=== PATIENT | male | born 1965 | race African-American/Black ===

== ENCOUNTER 2021-12-04 13:13 | Emergency (ER) | payer OTHER, SELFPAY ==
[2021-12-04 13:27] VITALS: BP 123/81; PULSE 68; RESP 16; TEMP 37.2; O2SAT 98
--- NOTE | 2021-12-04 13:36 | ED.SKABFB ---
HPI - Skin/Abscess/Foreign Bdy General Chief complaint: Skin/Abscess/Foreign Body Stated complaint: POSSIBLE INFECTION Source: patient Mode of arrival: ambulatory Limitations: no limitations History of Present Illness HPI narrative: this is a 55-year-old gentleman that presents with a an abscess located in the right groin area nonfluctuant firm with currently no drainage there is a central punctate area, the patient is up-to-date with his tetanus currently there is no fever chills the area is tender warm with currently no drainage. complaint: abscess/boil Onset (ago): day(s) Tetanus up to date: yes Location: genitals ( right groin area) Severity: mild Severity scale (1-10): 3 Quality: aching Pain Consistency: constant Related Data Home Medications Medication Instructions Recorded Confirmed furosemide [Lasix] 40 mg PO DAILY 12/04/21 12/04/21 Allergies Allergy/AdvReac Type Severity Reaction Status Date / Time No Known Allergies Allergy Verified 12/04/21 13:29 Review of Systems Review of Systems: All systems reviewed & are unremarkable except as noted in HPI and below PMFSH Past Medical History Medical History Patient denies medical problems Exam Const: General: no acute distress and alert Orientation/consciousness: patient oriented x3 HENMT: Head: normal to inspection Eyes: Conjunctivae: conjunctivae normal Pupils: Equal, round and reactive pupils present Neck: Neck: normal visual inspection and no meningeal signs Chest: Chest palpation & inspection: normal inspection of the chest Resp: Effort & Inspection: normal respiratory effort Auscultation: clear to auscultation bilaterally Cardio: Rate: regular rate Rhythm: regular rhythm GI: Auscultation: normal bowel sounds Skin: Other: nonfluctuant abscess located the right groin area about 3x3cm with currently no drainage warm and tender to touch Neuro: General: patient oriented x3 Extrem: General: normal to inspection Course Course Emergency Course: the area the right groin is nonfluctuant abscess is warm and tender with no drainage, will give the patient a g of ceftriaxone IM and the patient is up-to-date with his tetanus shot. Vital Signs Vital signs: Vital Signs Temperature 37.2 C 12/04/21 13:27 Pulse Rate 68 12/04/21 13:27 Respiratory Rate 16 12/04/21 13:27 Blood Pressure 123/81 12/04/21 13:27 Pulse Oximetry 98 12/04/21 13:27 Temperature 37.2 C 12/04/21 13:27 Pulse Rate 68 12/04/21 13:27 Respiratory Rate 16 12/04/21 13:27 Blood Pressure 123/81 12/04/21 13:27 Pulse Oximetry 98 12/04/21 13:27 Critical Care Time Critical Care Time Critical Care Time: No Discharge Plan Discharge Clinical Impression: Abscess of skin or subcutaneous tissue Qualifiers: Site of cutaneous abscess: other site Qualified Code(s): L02.818 - Cutaneous abscess of other sites Patient Disposition: Home, Self-Care Condition: Stable Instructions: Antibiotic Form, Abscess (ED) Additional Instructions: Take medicine as prescribed, advised warm compress to affected area along with Tylenol or Motrin to help with inflammation along with antibiotics. Prescriptions: New clindamycin HCl 300 mg capsule 300 mg PO Q6H 10 Days Qty: 40 RF: 0 No Action furosemide [Lasix] 40 mg Tablet 40 mg PO DAILY RF: 0 Follow-up/Referrals: So,TIFFANIE Gipson [Primary Care Provider] - Time of Disposition: 13:40
[2021-12-04] MEDS: cefTRIAXone 1 GM VIAL IM (13:42)
[2021-12-04 13:44] VITALS: BP 123/81; PULSE 68; RESP 16; TEMP 37.2; O2SAT 98
== END 2021-12-04 13:49 | disposition home or self-care (01) ==
PROVIDERS: Emergency Provider Emergency Medicine; PCP Physician Assistant
DX: L02.214 Cutaneous abscess of groin (principal)
CPT/HCPCS: 96372; 99283; J0696

== ENCOUNTER 2024-02-22 11:32 | Outpatient (CLI) | payer OTHER, SELFPAY ==
--- NOTE | ~2024-02-22 | XR_ITS ---
XR chest 2V Ordering provider: Brandan Rizzo, TIFFANIE History: 58 years Male with . Cough/congestion x2 weeks prior, No chest complaints today . Comparison: February 24, 2014 FINDINGS: MEDIASTINUM: The cardiac silhouette is not enlarged. Left tripolar pacemaker. LUNGS: No infiltrates, effusions or pneumothorax. OTHER: No free air under the diaphragm. IMPRESSION: No acute cardiopulmonary pathology. Reviewed, dictated and finalized at location A.
== END 2024-02-22 11:33 | disposition home or self-care (01) ==
LOC: CHSIMG 11:34
PROVIDERS: PCP Physician Assistant; Visit Provider Physician Assistant
DX: J20.9 Acute bronchitis, unspecified (principal)
CPT/HCPCS: 71046

== ENCOUNTER 2024-04-23 20:22 | Emergency (ER) | payer OTHER, SELFPAY ==
--- NOTE | ~2024-04-23 | XR_ITS ---
EXAMINATION: XR hand RT min 3V DATE: 04/23/2024 20:54 INDICATION: Second finger deformity after lawnmower injury TECHNIQUE: Posteroanterior, oblique and lateral views of the right hand were obtained. COMPARISON: None. FINDINGS: Minimally displaced comminuted intra-articular fracture at the base and proximal diaphysis of the rig ht second proximal phalanx. Alignment remains near-anatomic. No other fractures identified. Remaining joint spaces are normal. Soft tissue swelling about the base of the right second digit. No radiopaqu e foreign bodies. IMPRESSION: 1. Comminuted intra-articular fracture at the base of the proximal diaphysis of the right second prox imal phalanx. Reviewed, dictated and finalized at location A. IMPRESSION: 1. Comminuted intra-articular fracture at the base of the proximal diaphysis of the right second proximal phalanx.
[2024-04-23 20:22] VITALS: BP 124/73; PULSE 69; RESP 18; TEMP 36.8; O2SAT 96
[2024-04-23] MEDS: TETANUS,DIPHTHERIA,AC PERTUSSIS ADULT 0.5 ML (ADACEL) IM (20:36)
[2024-04-23] MEDS: KETOROLAC (*BKC) 60 MG/2 ML VIAL IM (20:37)
--- NOTE | 2024-04-23 21:47 | ED.UPPEXIN ---
HPI - Extremity Injury (Upper) General Chief Complaint: Extremity Injury, Upper Stated Complaint: Hand Injury Time Seen by Provider: 04/23/24 20:26 Source: patient and family Mode of arrival: ambulatory Limitations: no limitations History of Present Illness HPI narrative: this is a 58-year-old male who presents with injury to his right index finger with avulsion and swelling and pain that he rates about a 7/10 that occurred earlier today after he was using a sledgehammer that rebounded back and hit his hand. No other injuries. Currently there is no numbness or tingling has limited range of motion secondary to pain and swelling. complaint: injury to: right, hand and finger Onset (ago): hour(s) Other Extremity Injury: Right: fingers ( swelling with avulsion to the anterior surface of index finger) Other injuries: none Handedness: right Place: home Severity: moderate Severity scale (1-10): 7 Related Data Allergies Allergy/AdvReac Type Severity Reaction Status Date / Time No Known Allergies Allergy Verified 12/04/21 13:29 Review of Systems Review of Systems: All systems reviewed & are unremarkable except as noted in HPI and below PMFSH Past Medical History Medical History Patient denies medical problems Exam Const: General: healthy appearing and no acute distress Nutritional Appearance: well nourished Orientation/consciousness: patient oriented x3 Limitations: no limitations Resp: Effort & Inspection: normal respiratory effort Auscultation: clear to auscultation bilaterally Cardio: Rate: regular rate Rhythm: regular rhythm GI: GI Palp: Yes Soft to palpation Skin: Wounds: wounds noted Neuro: General: patient oriented x3, moves all extremities and no meningeal signs Extrem: Other: Tender right index finger with swelling Course Course Emergency Course: patient after reassessment after given Toradol and pain level has improved x-ray performed shows comminuted fracture with avulsion to the right index finger and Adacel was also given patient was updated with his tetanus. Vital Signs Vital signs: Vital Signs Temperature 36.8 C 04/23/24 20:22 Pulse Rate 69 04/23/24 20:22 Respiratory Rate 18 04/23/24 20:22 Blood Pressure 124/73 04/23/24 20:22 Pulse Oximetry 96 04/23/24 20:22 Oxygen Delivery Room Air 04/23/24 20:22 Temperature 36.8 C 04/23/24 20:22 Pulse Rate 69 04/23/24 20:22 Respiratory Rate 18 04/23/24 20:22 Blood Pressure 124/73 04/23/24 20:22 Pulse Oximetry 96 04/23/24 20:22 Oxygen Delivery Room Air 04/23/24 20:22 Critical Care Time Critical Care Time Critical Care Time: No Discharge Plan Discharge Clinical Impression: Fracture of hand Qualifiers: Encounter type: initial encounter Fracture type: closed Laterality: right Qualified Code(s): S62.91XA - Unspecified fracture of right wrist and hand, initial encounter for closed fracture Patient Disposition: Home, Self-Care Condition: Stable Instructions: Antibiotic Form, Finger Fracture (ED) Additional Instructions: advised to take medicine as prescribed and follow with primary within the next 3 to 4 days for further evaluation and treatment. Prescriptions: New oxycodone-acetaminophen [Percocet] 5-325 mg tablet 1 tablet PO Q6H PRN (Reason: pain) Qty: 14 0RF Follow-up/Referrals: So,TIFFANIE Gipson [Primary Care Provider] - Time of Disposition: 21:51
[2024-04-23 22:00] VITALS: BP 128/70; PULSE 62; RESP 18; O2SAT 97
== END 2024-04-23 22:00 | disposition home or self-care (01) ==
PROVIDERS: Emergency Provider Emergency Medicine; PCP Physician Assistant
DX: S62.91XA Unspecified fracture of right hand, initial encounter for closed fracture (principal); Z23 Encounter for immunization; W22.8XXA Striking against or struck by other objects, initial encounter
CPT/HCPCS: 29130; 73130; 90471; 90715; 96372; 99284; J1885

== ENCOUNTER 2025-06-20 11:08 | Emergency (ER) | payer OTHER, SELFPAY ==
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
[2025-06-20 11:08] VITALS: BP 134/119; PULSE 70; RESP 16; TEMP 36.6; O2SAT 98
--- OUTSIDE RECORDS SUMMARY | 2025-06-20 11:11 | XMS_ITS | Clinical Summary ---
Author Organization [facility] Address [facility] [place] [address] Care Team Providers Care Environmental Studies Faculty Member Name Role Phone Teo Rodriguez MD Primary Care Provider Gualberto Jackson MD Unavailable [phone] Jesenia Morgan MD Unavailable Feli Fraga PA-C Unavailable [phone] Allergies No known active allergies Medications atorvastatin 20 MG tablet 07/06/2020 Active metoprolol succinate ER (TOPROL-XL) 25 MG 24 hr tablet Take 1 tablet (25 mg total) by mouth daily. 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 [address] [address] Abhilash Stinson Jr., MD Arrived Discharge Disposition: Home or Self Care (Routine Discharge) 06/17/2025 Travel 06/16/2025 8:15 AM CDT Office Visit [facility] [place] [address] [place] [address] Gualberto Jackson MD Consult 06/16/2025 8:00 AM CDT - 06/16/2025 11:59 PM CDT Hospital Encounter [facility] [place] [address] Gualberto Jackson MD Discharge Disposition: Home or Self Care (Routine Discharge) 06/16/2025 Telephone [facility] [address] [place] [address] Gualberto Jackson MD Information 06/16/2025 Telephone [facility] [address] [place] [address] Gualberto Jackson MD Information 06/16/2025 Telephone [facility] [address] [place] [address] Jesenia Morgan MD Schedule Test 06/16/2025 Travel 06/14/[address] [facility] [place] [address] Gualberto Jackson MD 06/07/2025 10:15 AM CDT Office Visit [facility] [place] [address] [place] [address] Jesenia Morgan MD Heart Problem 06/07/2025 9:46 AM CDT - 06/07/2025 11:59 PM CDT Hospital Encounter [facility] [place] [address] Jesenia Morgan MD Discharge Disposition: Home or Self Care (Routine Discharge) 06/07/2025 Telephone [facility] [address] [place] [address] Jesenia Morgan MD Schedule Test 06/07/2025 Telephone [facility] [address] [place] [address] Gualberto Jackson MD Error 06/07/2025 Orders Only [facility] [address] [place] [address] Jesenia Morgan MD 06/07/2025 Travel 06/03/2025 Orders Only [facility] [address] [place] [address] Jesenia Morgan MD 06/01/2025 Abstract [facility] [address] [place] [address] Abstract, Doc Pccl 05/31/2025 Scan [facility] [address] [place] [address] Scanned, Doc Pccl 05/31/2025 Telephone [facility] [place] [address] Gualberto Jackson MD Referral Request from Last 3 Months Family History Relation Status Comments Child Father Maternal Grandfather Maternal Grandmother Mother Alive Paternal Grandfather Paternal Grandmother Social History Tobacco Use Types Packs/Day Years Used Date Smoking Tobacco: Former Smokeless Tobacco: Never Alcohol Use Standard Drinks/Week Comments Yes 0 (1 standard drink = 0.6 oz pur e alcohol) occassional Sex and Gender Information Value Date Recorded Sex Assigned at Male 06/07/2025 9:43 AM CDT Legal Sex Male 8:49 PM CDT Gender Identity Not on file Sexual Orientation Not on file 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 Not on file Not on file Not on file Last Filed Vital Signs Vital Sign Reading Time Taken Comments Blood Pressure 134/74 06/16/2025 8:30 AM CDT Pulse 64 06/16/2025 8:30 AM CDT Temperature 36.6 C (97.9 F) 12/05/2023 6:36 PM CDT Respiratory Rate 16 06/16/2025 8:30 AM CDT Oxygen Saturation 100% 06/16/2025 8:30 AM CDT Inhaled Oxygen Concentration - - Weight 70.1 kg (154 lb 9.6 oz) 06/16/2025 8:30 A M CDT Height 180.3 cm (5' 11) 06/16/2025 8:30 AM CDT Body Mass Index 21.56 06/16/2025 8:30 AM CDT Plan of Treatment Upcoming Encounters Date Type Department Care Team (Late st Contact Info) Description 06/28/2025 10:[address] [facility] [place] [address] Jesenia Morgan MD [address] [place] [address] 06/29/2025 1:[address] [facility] [place] [address] Jesenia Morgan MD [address] [place] [address] 07/27/2025 7:45 AM LEAD LOADER [facility]ment [facility] [place] [address] Jesenia Morgan MD [address] [place] [address] 07/27/2025 8:15 AM LEAD LOADER [facility]ment [facility] [place] [address] Jesenia oMrgan MD [address] [place] [address] 07/27/2025 9:00 AM LEAD LOADER [facility]ment [facility] [place] [address] Jesenia Morgan MD [address] [place] [address] [place] [address] [address] [place] [address] 07/27/2025 9:45 AM LEAD LOADER Appointment [address] [place] [address] Jesenia Morgan MD [address] [place] [address] 09/15/2025 10:15 AM LEAD LOADER Office Visit [facility] [place] [address] Jesenia Morgan MD [address] [place] [address] [phone] 05/18/2026 9:00 AM CDT Office Visit [facility] [address] [place] [phone] Feli Fraga PA-C [address] [place] [address] Health Maintenance Due Date Last Done Comments Colorectal Cancer Screening Colonoscopy (10 Years) 1965 Annual Physical 12/28/1966 Meningococcal B Vaccine (1 o f 4 - Increased Risk) 12/28/1973 Hepatitis C 12/28/1981 Zoster Vaccines (1 of 2) 12/28/2013 Meningococcal Vaccine (2 - R isk 2-dose series) 06/25/2019 04/30/2019 Pneumococcal Vaccine: 50+ Ye ars (2 of 2 - PPSV23, PCV20, or PCV21) 06/25/2019 04/30/2019 RSV Immunization or 60+ Years (1 - Risk 60-74 years 1-dose series) 2023 COVID-19 Vaccine ( - 2023-2 5 season) 2025 Influenza Adult (#1) 2025 DTaP, Tdap and Td Vaccines ( 2 - Td or Tdap) 04/23/2034 04/23/2024 Hepatitis A Vaccines Aged Out No long er eligible based on patient's age to complete this topic RSV Immunizations Under 20 Months Aged Out No longer eligible based on patient's age to complete this topic Procedures Procedure Name Priority Date/Time Associated Diagnosis Comments ECG 12-LEAD Routine 06/16/2025 8:09 AM CDT Dilated cardiomyopathy (CMS/HCC HHS/HCC) Implantable cardioverter-defibril lator (ICD) in situ ECG 12-LEAD Routine 06/07/2025 9:56 AM CDT Hyperlipidemia Dilated cardiomyopathy (CMS/HCC HHS/HCC) SVC syndrome COMPREHENSIVE METABOLIC PANEL Routine 05/31/2025 from Last 3 Months Results * ECG 12 lead (HOSPITAL PERFORMED ONLY) (06/16/2025 8:09 AM CDT) Only the most recent of2 resultswithin the time period is included. 06/16/2025 8:09 AM CDT Narrative [facility] - 06/19/2025 5:39 AM CDT [address] [place] [address] Test Date: 2025-06-16 Pat Name: JONO PADILLA Department: 3 Room: Gender: Male Lottery Manager: JANINE CURRYB: 1965 Requested By: GUALBERTO JACKSON Order Number: [id number] Garret MD: Gualberto Jackson Measurements Intervals [place] Rate: 60 P: 54 KS: 176 QRS: 96 QRSD: 161 T: 38 QT: 466 QTc: 468 Interpretive Statements ELECTRONIC VENTRICULAR PACEMAKER SINUS RHYTHM ABNORMAL RHYTHM ECG Procedure Note Gualberto Jackson MD - 06/19/[address] [place] [address] Test Date: 2025-06-16 Pat Name: JONO PADILLA Department: 3 Room: Gender: Male Lottery Manager: JANINE : 1965 Requested By: GUALBERTO JCAKSON Order Number: [id number] Reading MD: Gualberto Jackson Measurements Intervals [place] Rate: 60 P: 54 [place]: 176 QRS: 96 QRSD: 161 T: 38 QT: 466 QTc: 468 Interpretive Statements ELECTRONIC VENTRICULAR PACEMAKER SINUS RHYTHM ABNORMAL RHYTHM ECG Gualberto Jackson MD ECG ORDERABLES Final Res ult [facility] * COMPREHENSIVE METABOLIC PANEL (05/31/2025) SODIUM S/P/B 143 GLUCOSE 86 mg/dL AST 22 BUN 15 CREATININE S/P/B 0.95 0.7 - 1.3 CALCIUM S/P/B 9.5 POTASSIUM S/P/B 4.0 CHLORIDE S/P/B 106 ALT 13 GFR ESTIMATE 91 Narrative Resulting Agency Comment [facility], [facility] Final Result from Last 3 Months Insurance [facility] MEDICAID Care Teams Environmental Studies Faculty Member Relationship Specialty Start Date End Date Teo Rodriguez MD [address] [place] [phone] PCP - General FAMILY PRACTICE 03/28/21 Gualberto Jackson MD [address] [place] [address] Consulting Physician CLINICAL CARDIAC ELECTROPHYSIOLOGY 05/31/25 Jesenia Morgan MD [address] [place], [place] [phone] Consulting Physician CARDIOVASCULAR DISEASE 05/31/25 Feli Fraga PA-C [address] [place], [place] [address]24[address] Referring Physician PHYSICIAN SCALE ADJUSTER 06/13/25
--- OUTSIDE RECORDS SUMMARY | 2025-06-20 11:11 | XMS_ITS | Encounter Summary ---
Author Organization [facility] Address [address] [place] [address] Care Team Providers Care Maintenance Mechanic Telephone Name Role Phone Fernandez Mcgregor MD Primary Care Provider [phone] Turner Stallworth MD Unavailable Unavailable Boone Ruiz MD Unavailable Teo Rodriguez MD Primary Care Provider [phone] Gualberto Jackson MD Unavailable [phone] Jesenia Morgan MD Unavailable Feli Fraga PA-C Unavailable [phone] Encounter Details Date Type Department Care Team (Late st Contact Info) Description 04/09/2017 Abstract [facility] [address] [place] [address] Boone Ruiz MD [address] [facility], [address] [place] [address] Social History Tobacco Use Types Packs/Day Years Used Date Smoking Tobacco: Light Smoker Smokeless Tobacco: Never Alcohol Use Standard Drinks/Week [...] file Not on file Not on file documented as of this encounter Plan of Treatment Upcoming Encounters Date Type Department Care Team (Late st Contact Info) Description 06/28/2025 10:30 AM CDT Appointment [facility] [place] [address] Jesenia Morgan MD [address] [place] [address] 06/29/2025 1:30 PM CDT Appointment [facility] [place] [address] Jesenia Morgan MD [address] [place] [address] 07/27/2025 7:45 AM BUSINESS PROJECT ANALYST Appointment [facility] [place] [address] Jesenia Morgan MD [address] [place] [address] 07/27/2025 8:15 AM BUSINESS PROJECT ANALYST Appointment [facility] [place] [address] Jesenia Morgan MD [address] [place] [address] 07/27/2025 9:00 AM BUSINESS PROJECT ANALYST Appointment [facility] [place] [address] Jesenia Morgan MD [address] [place] [address] [place] [address] [place] [address] 07/27/2025 9:45 AM BUSINESS PROJECT ANALYST Appointment [facility] [place] [address] Jesenia Morgan MD [address] [place] [address] 09/15/2025 10:15 AM BUSINESS PROJECT ANALYST Office Visit [facility] [place] [address] [place] [phone] Jesenia Morgan MD [address] [place] [address] 05/18/2026 9:00 AM CDT Office Visit [facility] [place] [address] [place] [address] Feli Fraga PA-C [address] [place] [address] documented as of this encounter Visit Diagnoses Not on filedocumented in this encounter Care Teams Maintenance Mechanic Telephone Relationship Specialty Start Date End Date Fernandez Mcgregor MD [address] [place], [place] [phone] PCP - General FAMILY PRACTICE 02/13/17 03/27/21 Teo Rodriguez MD [address] [place], [place] [phone] PCP - General FAMILY PRACTICE 03/28/21 Turner Stallworth MD [address] [place] [phone] CARDIOVASCULAR DISEASE 02/13/17 09/16/19 Boone Ruiz MD [address] [place], [place] [phone] Vascular/Atm Manager INTERNAL MEDICINE 02/14/17 Gualberto Jackson MD [address] [place] [address] Consulting Physician CLINICAL CARDIAC ELECTROPHYSIOLOGY 05/31/25 Jesenia Morgan MD [address] [place] [address] Consulting Physician CARDIOVASCULAR DISEASE 05/31/25 Feli Fraga PA-C [address] [place] [address] Referring Physician PHYSICIAN GREASE AND TALLOW PUMPER 06/13/25 documented as of this encounter
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
--- OUTSIDE RECORDS SUMMARY | 2025-06-20 11:44 | XMS_ITS | Encounter Summary ---
Author Organization [facility] Address [address] [place] [id number] Care Team Providers Care Automobile Body Repair Chief Name Role Phone Fernandez Mcgregor MD Primary Care Provider [phone] Turner Stallworth MD Unavailable Unavailable Boone Ruiz MD Unavailable Teo Rodriguez MD Primary Care Provider [phone] Gualberto Jackson MD Unavailable [phone] Jesenia Morgan MD Unavailable Feli Fraga PA-C Unavailable [phone] Encounter Details Date Type Department Care Team (Late st Contact Info) Description 06/04/2019 Abstract [facility] [address] [place] [address] Boone Ruiz MD [address] [facility], [address] [place] [address] Social History Tobacco Use Types [...] on file documented as of this encounter Last Filed Vital Signs Vital Sign Reading Time Taken Comments Blood Pressure 120/60 06/04/2019 1:02 PM CDT Pulse - - Temperature - - Respiratory Rate - - Oxygen Saturation - - Inhaled Oxygen Concentration - - Weight 65.8 kg (145 lb) 06/04/2019 1:02 PM CDT Height 180.3 cm (5' 11) 06/04/2019 1:02 PM CDT Body Mass Index 20.22 06/04/2019 1:02 PM CDT documented in this encounter Plan of Treatment Upcoming Encounters Date Type Department Care Team (Latest Contact Info) Description 06/28/2025 10:30 AM CDT Appointment [place] [address] Jesenia Morgan MD [address] [place] [address] 06/29/2025 1:30 PM CDT Appointment [place] [address] Jesenia Morgan MD [address] [place] [address] 07/27/2025 7:45 AM HIDE INSPECTOR Appointment [facility] [place] [address] Jesenia Morgan MD [address] [place] [address] 07/27/2025 8:15 AM HIDE INSPECTOR Appointment [facility] [place] [address] Jesenia Morgan MD [address] [place] [address] 07/27/2025 9:00 AM HIDE INSPECTOR Appointment [facility] [place] [address] Jesenia Morgan MD [address] [place] [address] [place] [address] [place] [address] 07/27/2025 9:45 AM HIDE INSPECTOR Appointment [address] [place] [address] Jesenia Morgan MD [address] [place], [place] [address] 09/15/2025 10:15 AM HIDE INSPECTOR Office Visit [facility] [address] [place] [phone] Jesenia Morgan MD [address] [place] [address] 09/23/2025 2:00 AM HIDE INSPECTOR Allied Health/Nurse Visit [facility] [address] [place] [phone] Gualberto Jackson MD [address] [place], [place] [address] 05/18/2026 9:00 AM CDT Office Visit [facility] [address] [place] [phone] Feli Fraga PA-C [address] [place], [place] 687[address] documented as of this encounter Visit Diagnoses Not on filedocumented in this encounter Care Teams Automobile Body Repair Chief Relationship Specialty Start Date End Date Fernandez Mcgregor MD [address] [place] [phone] PCP - General FAMILY PRACTICE 02/13/17 03/27/21 Teo Rodriguez MD [address] [place] [phone] PCP - General FAMILY PRACTICE 03/28/21 Turner Stallworth MD [address] [place] [phone] CARDIOVASCULAR DISEASE 02/13/17 09/16/19 Boone Ruiz MD [address] [place] [phone] Vascular/Corner Trimmer Operator INTERNAL MEDICINE 02/14/17 Gualberto Jackson MD [address] [place] [address] Consulting Physician CLINICAL CARDIAC ELECTROPHYSIOLOGY 05/31/25 Jesenia Morgan MD [address] [place], [place] [phone] Consulting Physician CARDIOVASCULAR DISEASE 05/31/25 Feli Fraga PA-C [address] [place], [place] [address] Referring Physician PHYSICIAN TICKET COLLECTOR OR USHER 06/13/25 documented as of this encounter
--- OUTSIDE RECORDS SUMMARY | 2025-06-20 11:44 | XMS_ITS | Encounter Summary ---
Author Organization [facility] Address [address] [place] [address] Care Team Providers Care Wash Box Operator Name Role Phone Fernandez Mcgregor MD Primary Care Provider [phone] Turner Stallworth MD Unavailable Unavailable Boone Ruiz MD Unavailable Teo Rodriguez MD Primary Care Provider [phone] Gualebrto Jackson MD Unavailable [phone] Jesenia Morgan MD Unavailable Feli Fraga PA-C Unavailable [phone] Encounter Details Date Type Department Care Team (Late st Contact Info) Description 04/09/2017 Abstract [facility] [address] [place] [address] Boone Ruiz MD [address] [facility], [address] [place] [address] Social History Tobacco Use Types [...] Info) Description 06/28/2025 10:30 AM CDT Appointment [facility] [place] [address] Jesenia Morgan MD [address] [place] [address] 06/29/2025 1:30 PM CDT Appointment [facility] [place] [address] Jesenia Morgan MD [address] [place] [address] 07/27/2025 7:45 AM CAN SORTER Appointment [facility] [place] [address] Jesenia Morgan MD [address] [place] [address] 07/27/2025 8:15 AM CAN SORTER Appointment [facility] [place] [address] Jesenia Morgan MD [address] [place] [address] 07/27/2025 9:00 AM CAN SORTER Appointment [facility] [place] [address] Jesenia Morgan MD [address] [place] [address] [place] [address] [place] [address] 07/27/2025 9:45 AM CAN SORTER Appointment [facility] [place] [address] Jesenia Morgan MD [address] [place] [address] 09/15/2025 10:15 AM CAN SORTER Office Visit [facility] [address] [place] [phone] Jesenia Morgan MD [address] [place] [address] 09/23/2025 2:00 AM CAN SORTER Allied Health/Nurse Visit [facility] [address] [place] [phone] Gualberto Jackson MD [address] [place], [place] [address] 05/18/2026 9:00 AM CDT Office Visit [facility] [address] [place] [phone] Feli Fraga PA-C [address] [place] [address] documented as of this encounter Visit Diagnoses Not on filedocumented in this encounter Care Teams Wash Box Operator Relationship Specialty Start Date End Date Fernandez Mcgregor MD [address] [place], [place] [phone] PCP - General FAMILY PRACTICE 02/13/17 03/27/21 Teo Rodriguez MD [address] [place] [phone] PCP - General FAMILY PRACTICE 03/28/21 Turner Stallworth MD [address] [place] [phone] CARDIOVASCULAR DISEASE 02/13/17 09/16/19 Boone Ruiz MD [address] [place], [place] [phone] Vascular/Lacquer Maker INTERNAL MEDICINE 02/14/17 Gualberto Jackson MD [address] [place] [phone] Consulting Physician CLINICAL CARDIAC ELECTROPHYSIOLOGY 05/31/25 Jesenia Morgan MD [address] [place] [address] Consulting Physician CARDIOVASCULAR DISEASE 05/31/25 Feli Fraga PA-C [address] [place] [address] Referring Physician PHYSICIAN SPRING FITTER 06/13/25 documented as of this encounter
--- OUTSIDE RECORDS SUMMARY | 2025-06-20 11:44 | XMS_ITS | Clinical Summary ---
Author Organization [facility] Address [facility] [place] [address] Care Team Providers Care Intelligence Clerk Name Role Phone Teo Rodriguez MD Primary Care Provider Gualberto Jackson MD Unavailable [phone] Jesenia Morgan MD Unavailable Feli Fraga [...] - 06/17/2025 11:59 PM CDT Hospital Encounter [facility] [address] [place] [address] Abhilash Stinson Jr., MD Arrived Discharge Disposition: Home or Self Care (Routine Discharge) 06/17/2025 Travel 06/16/2025 8:15 AM CDT Allied Health/Nurse Visit [facility] [place] [address] [place] [address] Gualberto Jackson MD 06/16/2025 8:15 AM CDT Office Visit [facility] [place] [address] [place] [address] Gualberto Jackson MD Consult 06/16/2025 8:00 AM CDT - 06/16/2025 11:59 PM CDT Hospital Encounter [facility] [place] [address] Gualberto Jackson MD Discharge Disposition: Home or Self Care (Routine Discharge) 06/16/2025 Telephone [facility] [address] [place] [address] Gualberto Jackson MD Information 06/16/2025 Telephone [facility] [address] [place] [address] Gualberto Jackson MD Information 06/16/2025 Telephone [facility] [address] [place] [address] Jesenia Morgan MD Schedule Test 06/16/2025 Travel 06/14/2025 Orders Only [facility] [place] [address] Gualberto Jackson MD 06/07/2025 10:15 AM CDT Office Visit [facility] [place] [address] [address] Jesenia Morgan MD Heart Problem 06/07/2025 9:46 AM CDT - 06/07/2025 11:59 PM CDT Hospital Encounter [facility] [place] [address] Jesenia Morgan MD Discharge Disposition: Home or Self Care (Routine Discharge) 06/07/2025 Telephone [facility] [address] [place] [address] Jesenia Morgan MD Schedule Test 06/07/2025 Telephone [facility] [address] [place] [address] Gualberto Jackson MD Error 06/07/2025 Orders Only [facility] [address] [place] [address] Jesenia Morgan MD 06/07/2025 Travel 06/03/2025 Orders Only [facility] [address] [place] [address] Jesenia Morgan MD 06/01/2025 Abstract [facility] [address] [place] [address] Abstract, Doc Pccl 05/31/2025 Scan [facility] [address] [place] [address] Scanned, Doc Pccl 05/31/2025 Telephone [facility] [place] [address] Gualberto Jackson MD Referral Request from Last [...] Description 06/28/2025 10:[address] [place] [address] Jesenia Morgan MD [address] [place] [address] 06/29/2025 1:[address] [place] [address] Jesenia Morgan MD [address] [place] [address] 07/27/2025 7:45 AM RACING DRIVER Appointment [facility] [place] [address] Jesenia Morgan MD [address] [place] [address] 07/27/2025 8:15 AM RACING DRIVER Appointment [facility] [place] [address] Jesenia Morgan MD [address] [place] [address] 07/27/2025 9:00 AM RACING DRIVER Appointment [facility] [place] [address] Jesenia Morgan MD [address] [place] [address] [place] [address] [place] [address] 07/27/2025 9:45 AM RACING DRIVER Appointment [address] [place] [address] Jesenia Morgan MD [address] [place] [address] 09/15/2025 10:15 AM RACING DRIVER Office Visit [facility] [address] [place] [address] Jesenia Morgan MD [address] [place] [address] 09/23/2025 2:00 AM RACING DRIVER Allied Health/Nurse Visit [facility] [address] [place] [address] Gualberto Jackson MD [address] [place] [address] 05/18/2026 9:00 AM CDT Office Visit [facility] [address] [place] [address] Feli Fraga PA-C [address] [place] [address] Health Maintenance Due Date Last Done Comments [...] 60-74 years 1-dose series) 2023 COVID-19 Vaccine (1 - 2023-2 5 season) 2025 Influenza Adult [...] is included. 06/16/2025 8:09 AM CDT Narrative [facility] RAD - 06/19/2025 5:39 AM CDT [place] [address] [facility] [place] [place] [address] Test Date: 2025-06-16 Pat Name: JONO PADILLA Department: 3 Room: Gender: Male Dictating Transcribing Machine Servicer: JANINE : 1965 Requested By: GUALBERTO JACKSON Order Number: [id number] Reading MD: Gualberto Jackson Measurements Intervals [place] Rate: 60 P: 54 WI: 176 QRS: 96 QRSD: 161 T: 38 QT: 466 QTc: 468 Interpretive Statements ELECTRONIC VENTRICULAR PACEMAKER SINUS RHYTHM ABNORMAL RHYTHM ECG Procedure Note Gualberto Jackson MD - 06/19/2025 [place] [address] [facility] [place] [address] Test Date: 2025-06-16 Pat Name: JONO LOUISE Department: 3 Room: Gender: Male Dictating Transcribing Machine Servicer: JANINE : 1965 Requested By: GUALBERTO JACKSON Order Number: [id number] Reading MD: Gualberto Jackson Measurements Intervals [place] Rate: 60 P: 54 WI: 176 QRS: 96 QRSD: 161 T: 38 QT: 466 QTc: 468 Interpretive Statements ELECTRONIC VENTRICULAR PACEMAKER SINUS RHYTHM ABNORMAL RHYTHM ECG Gualberto Jackson MD ECG ORDERABLES Final Res ult [facility] * COMPREHENSIVE METABOLIC PANEL (05/31/2025) SODIUM S/P/B 143 GLUCOSE 86 mg/dL AST 22 BUN 15 CREATININE S/P/B 0.95 0.7 - 1.3 CALCIUM S/P/B 9.5 POTASSIUM S/P/B 4.0 CHLORIDE S/P/B 106 ALT 13 GFR ESTIMATE 91 Narrative Resulting Agency Comment [facility] Final Result from Last 3 Months Insurance [employer] MEDICAID Care Teams Intelligence Clerk Relationship Specialty Start Date End Date Teo Rodriguez MD [address] [place] [phone] PCP - General FAMILY PRACTICE 03/28/21 Gualberto Jackson MD [address] [place] [address] Consulting Physician CLINICAL CARDIAC ELECTROPHYSIOLOGY 05/31/25 Jesenia Morgan MD [address] [place], [place] [phone] Consulting Physician CARDIOVASCULAR DISEASE 05/31/25 Feli Fraga PA-C [address] [place] [address] Referring Physician PHYSICIAN FRONTLOAD DRIVER 06/13/25
[2025-06-20] MEDS: KETOROLAC (*BKC) 60 MG/2 ML VIAL IM (12:30)
[2025-06-20 12:45] VITALS: BP 120/79; PULSE 65; RESP 20; O2SAT 98
[2025-06-20 13:40] VITALS: BP 128/79; PULSE 69; RESP 20; O2SAT 98
[2025-06-20 14:14] VITALS: BP 123/81; PULSE 74; RESP 20; TEMP 36.9; O2SAT 98
== END 2025-06-20 14:14 | disposition home or self-care (01) ==
PROVIDERS: Emergency Provider Emergency Medicine; PCP Physician Assistant
DX: S16.1XXA Strain of muscle, fascia and tendon at neck level, initial encounter (principal); V49.40XA Driver injured in collision with unspecified motor vehicles in traffic accident, initial encounter
CPT/HCPCS: 72040; 72125; 96372; 99284; J1885